=== PATIENT | male | born 1985 | race Caucasian/White ===

== ENCOUNTER 2017-03-11 20:06 | Emergency (ER) | payer BC ==
[2017-03-11] MEDS ORDERED: Famotidine 20 MG/2 ML SDV IVPUSH ONE (20:08)
[2017-03-11] MEDS ORDERED: diphenhydrAMINE 50 MG/ML SDV IVPUSH ONE (20:08)
[2017-03-11] MEDS ORDERED: methylPREDNISolone Sodium Succinate 125 MG/2 ML SDV IVPUSH ONE (20:09)
[2017-03-11] MEDS ORDERED: diphenhydrAMINE 50 MG/ML SDV ONE (20:12)
[2017-03-11] MEDS ORDERED: methylPREDNISolone Sodium Succinate 125 MG/2 ML SDV ONE (20:12)
[2017-03-11] MEDS ORDERED: Famotidine 20 MG/2 ML SDV ONE (20:13)
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
[2017-03-11] MEDS ORDERED: Sodium Chloride 0.9% 1,000 ML IV SCH (20:15)
[2017-03-11 21:18] VITALS: BP 122/81
== END 2017-03-11 21:15 | disposition home or self-care (01) ==
LOC: JD.ED 20:06
DX: T63.481A Toxic effect of venom of other arthropod, accidental (unintentional), initial encounter (principal); L53.9 Erythematous condition, unspecified; Z91.030 Bee allergy status
CPT/HCPCS: 96361; 96374; 96375; 99283; J1200; J2930; J7040; 99284

== ENCOUNTER 2018-11-30 15:13 | Emergency (ER) | payer BC, OTHER ==
[2018-11-30 15:28] VITALS: BP 137/83
[2018-11-30] MEDS ORDERED: Ketorolac 30 MG/ML SDV IVPUSH ONE (17:10)
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
--- NOTE | 2018-11-30 20:40 | CR ---
Left shoulder: Three views of the left shoulder were obtained. Comparison: No previous shoulder study. Glenohumeral and acromioclavicular joints appear within normal limits. No fracture, dislocation or other bony abnormality is seen. Impression: 1. No abnormality is appreciated on left shoulder exam. Diagnostic code #1
== END 2018-11-30 17:32 | disposition home or self-care (01) ==
LOC: JD.ED 15:13
DX: S43.402A Unspecified sprain of left shoulder joint, initial encounter (principal); F17.210 Nicotine dependence, cigarettes, uncomplicated; Z91.030 Bee allergy status; V49.49XA Driver injured in collision with other motor vehicles in traffic accident, initial encounter; Y92.481 Parking lot as the place of occurrence of the external cause; Y99.0 Civilian activity done for income or pay
CPT/HCPCS: 73030-26-LT; 73030-LT; 99282; 99283-25

== ENCOUNTER 2019-03-18 20:02 | Emergency (ER) | payer BC, OTHER ==
[2019-03-18 20:39] VITALS: BP 149/100
[2019-03-18] MEDS ORDERED: methylPREDNISolone Sodium Succinate 125 MG/2 ML SDV IVPUSH ONE (20:55)
[2019-03-18] MEDS ORDERED: Sodium Chloride 0.9% 10 ML Syringe FLUSH PRN (20:55)
[2019-03-18] MEDS ORDERED: Famotidine 20 MG/2 ML SDV IVPUSH ONE (20:55)
[2019-03-18] MEDS ORDERED: Sodium Chloride 0.9% 1,000 ML IV ONE (20:55)
[2019-03-18] MEDS ORDERED: diphenhydrAMINE 50 MG/ML SDV IVPUSH ONE (20:55)
[2019-03-18] MEDS ORDERED: Albuterol 0.083% 2.5 MG/3 ML Neb Soln NEB ONE (20:56)
--- NOTE | 2019-03-18 21:53 | EDM.PDOC ---
ED HPI GENERAL MEDICAL PROBLEM - General Chief Complaint: Bite:Animal, Insect Stated Complaint: STUNG BY A BEE ON HEAD/THROWING UP PT ALLERGIC Time Seen by Provider: 03/18/19 20:55 Source of Information: Reports: Patient, RN Notes Reviewed History Limitations: Reports: No Limitations - History of Present Illness INITIAL COMMENTS - FREE TEXT/NARRATIVE: Patient is a 33-year-old male who presents to the ED for the evaluation of a bee sting. The patient notes that around 7:45 PM he put his hand on his head and ended up getting stung by a bee. The patient does not appreciate any swelling to the top of his head, nor does he appreciate any sort of trouble breathing or feelings of his throat swelling. He does notice a rash to his arms abdomen and back and legs. Patient did noticed an occasional wheeze, but denies his lips or throat feeling swollen. The patient does have an EpiPen at home for prior bee sting reaction, but did not take this as he states he was told by a nurse at one point to drink children's liquid Benadryl, so he did this and drink the entire bottle. The patient denies rash being itchy at all. He did have one emesis in the ER waiting room but is not feeling nausea or have any sort of emesis since then. Patient denies any shortness of breath, chest pain, fevers or chills, nausea or current vomiting or diarrhea. - Related Data Allergies Allergy/AdvReac Type Severity Reaction Status Date / Time bee venom protein (honey bee) Allergy Airway Verified 11/30/18 15:21 Tightness Home Meds: Home Meds EPINEPHrine [Epinephrine] 1 applic INJECT ASDIRECTED 03/18/19 [History] predniSONE [Deltasone] 20 mg PO ASDIRECTED #15 tablet 03/18/19 [Rx] Past Medical History - Past Health History Medical/Surgical History: Denies Medical/Surgical History HEENT History: Reports: Impaired Vision Cardiovascular History: Reports: None Respiratory History: Reports: None Gastrointestinal History: Reports: None Genitourinary History: Reports: None Musculoskeletal History: Reports: None Neurological History: Reports: None Psychiatric History: Reports: None Endocrine/Metabolic History: Reports: None Hematologic History: Reports: None Immunologic History: Reports: None Oncologic (Cancer) History: Reports: None Dermatologic History: Reports: None - Infectious Disease History Infectious Disease History: Reports: None - Past Surgical History Head Surgeries/Procedures: Reports: None HEENT Surgical History: Reports: Adenoidectomy, Tonsillectomy Social & Family History - Family History Family Medical History: Noncontributory - Tobacco Use Smoking Status *Q: Current Every Day Smoker Years of Tobacco use: 1 Packs/Tins Daily: 0.1 - Caffeine Use Caffeine Use: Reports: Energy Drinks - Recreational Drug Use Recreational Drug Use: No - Living Situation & Occupation Occupation: Employed ED ROS GENERAL - Review of Systems Review Of Systems: See Below Constitutional: Reports: No Symptoms HEENT: Denies: Throat Pain, Throat Swelling Respiratory: Reports: Wheezing (mild wheezing noted upon initial exam). Denies : Shortness of Breath Cardiovascular: Denies: Chest Pain Endocrine: Reports: No Symptoms GI/Abdominal: Reports: Vomiting (1 episode in waiting room.). Denies: Abdominal Pain, Diarrhea, Nausea Musculoskeletal: Reports: No Symptoms Skin: Reports: Rash (generalized rash) Neurological: Reports: No Symptoms Psychiatric: Reports: No Symptoms Hematologic/Lymphatic: Reports: No Symptoms ED EXAM, ANIMAL BITE - Physical Exam Exam: See Below Exam Limited By: No Limitations General Appearance: Alert, WD/WN, No Apparent Distress Eye Exam: Bilateral Eye: EOMI, Normal Inspection, PERRL Ears: Normal External Exam Nose: Normal Inspection Throat/Mouth: Normal Inspection, Normal Lips, Normal Teeth, Normal Gums, Normal Oropharynx, Normal Voice, No Airway Compromise Head: Atraumatic, Normocephalic Neck: Normal Inspection, Supple, Non-Tender, Full Range of Motion Respiratory/Chest: No Respiratory Distress, Lungs Clear, Normal Breath Sounds, No Accessory Muscle Use, Chest Non-Tender Cardiovascular: Normal Peripheral Pulses, Regular Rate, Rhythm, No Murmur Peripheral Pulses: 3+: Radial (L), Radial (R) GI/Abdominal: Normal Bowel Sounds, Soft, Non-Tender, No Distention, No Mass Extremities: Normal Inspection, Normal Capillary Refill Neurological: Alert, Oriented, Normal Cognition, No Motor/Sensory Deficits Psychiatric: Normal Affect, Normal Mood Skin Exam: Warm/Dry, Rash (diffuse generalized macular red rash on all surfaces of body.) Course - Vital Signs Last Recorded V/S: Last Vital Signs Temp 99.9 F 03/18/19 20:38 Pulse 116 H 03/18/19 20:38 Resp 17 03/18/19 20:38 BP 149/100 H 03/18/19 20:38 Pulse Ox 100 03/18/19 20:56 - Orders/Labs/Meds Orders: Active Orders 24 hr Category Date Time Status Peripheral IV Care [RC] . DIRECTED Care 03/18/19 20:55 Ordered RT Aerosol Therapy [RC] ASDIRECTED Care 03/18/19 20:56 Ordered Sodium Chloride 0.9% [Normal Saline] 1,000 ml Med 03/18/19 20:55 Ordered IV ONETIME Sodium Chloride 0.9% [Saline Flush] Med 03/18/19 20:55 Ordered 10 ml FLUSH ASDIRECTED PRN Peripheral IV Insertion Adult [OM.PC] Stat Oth 03/18/19 20:55 Ordered Medication Orders Sodium Chloride (Normal Saline) 1,000 mls @ 500 mls/hr IV ONETIME ONE Stop: 03/18/19 22:54 Last Admin: 03/18/19 21:14 Dose: 500 mls/hr Sodium Chloride (Saline Flush) 10 ml FLUSH ASDIRECTED PRN PRN Reason: Keep Vein Open Last Admin: 03/18/19 21:14 Dose: 10 ml Meds: Medications Generic Name Dose Route Start Last Admin Trade Name Freq PRN Reason Stop Dose Admin Sodium Chloride 1,000 mls @ 500 mls/hr 03/18/19 20:55 03/18/19 21:14 Normal Saline IV 03/18/19 22:54 500 mls/hr ONETIME ONE Administration Sodium Chloride 10 ml 03/18/19 20:55 03/18/19 21:14 Saline Flush FLUSH 10 ml ASDIRECTED PRN Administration Keep Vein Open Discontinued Medications Generic Name Dose Route Start Last Admin Trade Name Freq PRN Reason Stop Dose Admin Albuterol 2.5 mg 03/18/19 20:56 03/18/19 21:05 Proventil Neb Soln NEB 03/18/19 20:57 2.5 mg ONETIME ONE Administration Diphenhydramine HCl 50 mg 03/18/19 20:55 Benadryl IVPUSH 03/18/19 20:56 ONETIME ONE Famotidine 20 mg 03/18/19 20:55 03/18/19 21:13 Pepcid IVPUSH 03/18/19 20:56 20 mg ONETIME ONE Administration Methylprednisolone Sodium Succinate 125 mg 03/18/19 20:55 03/18/19 21:13 Solu-Medrol IVPUSH 03/18/19 20:56 125 mg ONETIME ONE Administration - Re-Assessments/Exams Free Text/Narrative Re-Assessment/Exam: 03/18/19 20:57 Patient presents to the ED for evaluation of a bee sting. Did order an IV to be placed, IV fluids, 10 mg Pepcid, 125 mg Solu-Medrol, and a one-time albuterol nebulizer as he was complaining of some wheezing. Patient did not take his epinephrine at this time, however he is not having any sort of upper airway distress. I will not give him epinephrine in the ER for management. This appears to be more of a generalized systemic reaction or anaphylactic reaction. Will send the patient home with his prescription for prednisone and recommendations take Benadryl every 4-6 hours as needed for the next couple days. Departure - Departure Time of Disposition: 21:59 Disposition: Home, Self-Care 01 Condition: Fair Clinical Impression: Bee sting reaction Qualifiers: Encounter type: initial encounter Injury intent: accidental or unintentional Qualified Code(s): T63.441A - Toxic effect of venom of bees, accidental ( unintentional), initial encounter - Discharge Information *PRESCRIPTION DRUG MONITORING PROGRAM REVIEWED*: No *COPY OF PRESCRIPTION DRUG MONITORING REPORT IN PATIENT LOTUS: No Instructions: Bee, Wasp, or Hornet Sting, Adult Referrals: PCP,None [Primary Care Provider] - Additional Instructions: You were evaluated in the ED tonight for your bee sting. You were given some IV medications in management of this, this did seem to help relieve your symptoms fairly well. You were given a prescription of prednisone is a continuation for your generalized systemic reaction. You will need to take this prescription to the [email or web address] pharmacy located near [facility] tomorrow and filled us to start taking this tomorrow. This pharmacy is only open from 12 PM to 4 PM tomorrow. You may take Benadryl, 1 tab, every 4-6 hours as needed for the next couple days as well. Please return to the ED if your symptoms should change or worsen. - My Orders Last 24 Hours: My Active Orders 03/18/19 20:55 Peripheral IV Care [RC] . DIRECTED Sodium Chloride 0.9% [Normal Saline] 1,000 ml IV ONETIME Sodium Chloride 0.9% [Saline Flush] 10 ml FLUSH ASDIRECTED PRN Peripheral IV Insertion Adult [OM.PC] Stat 03/18/19 20:56 RT Aerosol Therapy [RC] ASDIRECTED - Assessment/Plan Last 24 Hours: My Active Orders 03/18/19 20:55 Peripheral IV Care [RC] . DIRECTED Sodium Chloride 0.9% [Normal Saline] 1,000 ml IV ONETIME Sodium Chloride 0.9% [Saline Flush] 10 ml FLUSH ASDIRECTED PRN Peripheral IV Insertion Adult [OM.PC] Stat 03/18/19 20:56 RT Aerosol Therapy [RC] ASDIRECTED
== END 2019-03-18 22:39 | disposition home or self-care (01) ==
LOC: JD.ED 20:02
DX: T63.441A Toxic effect of venom of bees, accidental (unintentional), initial encounter (principal); F17.210 Nicotine dependence, cigarettes, uncomplicated; Z98.890 Other specified postprocedural states
CPT/HCPCS: 94640; 96361; 96374; 96375; 99284; J2930; J3490; J7040; 99283; J1200